=== PATIENT | male | born 1950 | race Caucasian/White ===

== ENCOUNTER 2020-12-22 05:47 | Emergency (ER) | payer MEDICARE ==
--- NOTE | 2020-12-22 06:49 | EDM.PDOC ---
<Justin Villanueva - Last Filed: 12/22/20 09:16> ED HPI GENERAL MEDICAL PROBLEM - General Chief Complaint: General Stated Complaint: COUGH/CHEST CONGESTION/BODY ACHES Time Seen by Provider: 12/22/20 06:20 - Related Data Allergies Allergy/AdvReac Type Severity Reaction Status Date / Time No Known Allergies Allergy Verified 12/22/20 06:23 Home Meds: Home Meds Aspirin [Children's Aspirin] 81 mg PO DAILY 12/22/20 [History] Verapamil HCl [Verelan] 360 mg PO DAILY 12/22/20 [History] Course - Re-Assessments/Exams Free Text/Narrative Re-Assessment/Exam: 12/22/20 09:16 Assumed care at change of shift. The patient was getting set up for monoclonal antibody therapy he is completed this in the observation. And he would like to go home Departure - Departure Time of Disposition: 09:17 Disposition: Home, Self-Care 01 Clinical Impression: COVID-19 - Discharge Information Instructions: COVID-19 Referrals: Suly Rosado STUDENT DEVELOPMENT ADVISOR [Primary Care Provider] - Forms: ED Department Discharge Additional Instructions: Return to the emergency room with any questions problems or worsening symptoms. Stay isolated for 4 days after you are completely symptom-free without the aid of any medication. <Gallo Alvarez - Last Filed: 12/22/20 20:56> ED HPI GENERAL MEDICAL PROBLEM - General Source of Information: Reports: Patient History Limitations: Reports: No Limitations - History of Present Illness INITIAL COMMENTS - FREE TEXT/NARRATIVE: Patient is a 70-year-old male presenting to the emergency room with a chief c omplaint of fatigue. Patient reports feeling symptoms since last Thursday. Patient states symptoms have not improved at all. He does report a decrease in appetite. He continues to eat and drink. Patient denies any vomiting, diarrhea, shortness of breath, chest pain. Patient did not receive vaccination for Covid. His is also a patient here for similar type symptoms. Patient reports feeling so tired that he could "sleep on his head. Patient states he has several relatives over here and received the antibody infusion and felt immediately better. He is inquiring about possibly getting this. Patient is concerned that he may have COVID-19. He states he is lived 5 blocks in his hospital and never been here before. He has not seen a doctor in many years. Past Medical History Cardiovascular History: Reports: Hypertension Social & Family History - Family History Family Medical History: No Pertinent Family History - Tobacco Use Tobacco Use Status *Q: Never Tobacco User Second Hand Smoke Exposure: No - Caffeine Use Caffeine Use: Reports: None - Recreational Drug Use Recreational Drug Use: No ED ROS GENERAL - Review of Systems Review Of Systems: See Below Free Text/Narrative/Comment: In addition to that documented in the HPI above, the additional ROS was obtained: Constitutional: Denies fevers or chills Eyes: Denies vision changes ENMT: Denies sore throat CV: Denies chest pain Resp: Denies SOB GI: Denies vomiting or diarrhea : Denies painful urination MSK: Denies recent trauma Skin: Denies new rashes Neuro: Denies new numbness or tingling or weakness Heme: Denies bleeding disorders ED EXAM, GENERAL - Physical Exam Exam: See Below Free Text/Narrative:: I have reviewed the triage vital signs Const: Well nourished, well developed, appears stated age Eyes: Pupils Equal and reactive to light bilaterally, no conjunctival injection HENT: No signs of trauma or swelling, Neck supple without meningismus CV: Regular Rate Rhythm, Warm, well-perfused extremities RESP: Unlabored respiratory effort GI: soft, non-tender, non-distended, no masses MSK: No gross deformities appreciated Skin: Warm, dry. No rashes Neuro: Alert, cat dog or other pet groomer II-XII grossly intact. Sensation and motor function of extremities grossly intact. Psych: Appropriate mood and affect. Course - Vital Signs Last Recorded V/S: Last Vital Signs Temp 37.1 C 12/22/20 07:52 Pulse 73 12/22/20 08:00 Resp 18 12/22/20 08:00 BP 128/70 12/22/20 08:00 Pulse Ox 89 L 12/22/20 08:00 - Orders/Labs/Meds Labs: Laboratory Tests 12/22/20 12/22/20 12/22/20 Range/Units 06:14 06:30 06:30 WBC 4.30 (4.23-9.07) K/mm3 RBC 5.04 (4.63-6.08) M/mm3 Hgb 15.7 (13.7-17.5) gm/dl Hct 47.6 (40.1-51.0) % MCV 94.4 H (79.0-92.2) fl MCH 31.2 (25.7-32.2) pg MCHC 33.0 (32.2-35.5) g/dl RDW Std Deviation 43.9 (35.1-43.9) fL Plt Count 101 L (163-337) K/mm3 MPV 11.7 (9.4-12.3) fl Neut % (Auto) 81.4 H (34.0-67.9) % Lymph % (Auto) 13.0 L (21.8-53.1) % [place] % (Auto) 4.9 L (5.3-12.2) % Eos % (Auto) 0 L (0.8-7.0) Baso % (Auto) 0.2 (0.1-1.2) % Neut # (Auto) 3.50 (1.78-5.38) K/mm3 Lymph # (Auto) 0.56 L (1.32-3.57) K/mm3 [place] # (Auto) 0.21 L (0.30-0.82) K/mm3 Eos # (Auto) 0.00 L (0.04-0.54) K/mm3 Baso # (Auto) 0.01 (0.01-0.08) K/mm3 Sodium 138 (136-145) mEq/L Potassium 3.9 (3.5-5.1) mEq/L Chloride 103 (98-107) mEq/L Carbon Dioxide 28 (21-32) mEq/L Anion Gap 10.9 (5-15) BUN 23 H (7-18) mg/dL Creatinine 1.7 H (0.7-1.3) mg/dL Est Cr Clr Drug Dosing 46.34 mL/min Estimated GFR (MDRD) 40 (>60) mL/min BUN/Creatinine Ratio 13.5 L (14-18) Glucose 113 H (70-99) mg/dL Calcium 8.1 L (8.5-10.1) mg/dL Total Bilirubin 0.8 (0.2-1.0) mg/dL AST 37 (15-37) U/L ALT 34 (16-63) U/L Alkaline Phosphatase 53 (46-116) U/L C-Reactive Protein 5.6 H* (<1.0) mg/dL Total Protein 6.8 (6.4-8.2) g/dl Albumin 3.3 L (3.4-5.0) g/dl Globulin 3.5 gm/dL Albumin/Globulin Ratio 0.9 L (1-2) Influenza Type A RNA Negative (NEGATIVE) Influenza Type B RNA Negative (NEGATIVE) SARS-CoV-2 RNA (ROBE) Positive H (NEGATIVE) Meds: Medications Discontinued Medications Generic Name Dose Route Start Last Admin Trade Name Freq PRN Reason Stop Dose Admin Diphenhydramine HCl 50 mg 12/22/20 06:55 Diphenhydramine 50 Mg/Ml Sdv IVPUSH ASDIRECTED PRN hypersensitivity reaction Epinephrine HCl 0.3 mg 12/22/20 06:55 Epinephrine 1 Mg/Ml Sdv IM ASDIRECTED PRN hypersensitivity reaction Famotidine 20 mg 12/22/20 06:55 Famotidine 20 Mg/2 Ml Sdv IVPUSH ASDIRECTED PRN hypersensitivity reaction SOTROVIMAB 500 mg/ Sodium 108 mls @ 216 mls/hr 12/22/20 06:55 Chloride IV 12/22/20 07:24 ONETIME ONE CASIRIVIMAB/IMDEVIMAB 10 ml/ 110 mls @ 220 mls/hr 12/22/20 06:58 12/22/20 07:36 Sodium Chloride IV 12/22/20 07:27 220 mls/hr ONETIME ONE Administration Methylprednisolone Sodium Succinate 125 mg 12/22/20 06:55 Methylprednisolone Sodium Succinate 125 Mg/2 Ml Sdv IVPUSH ASDIRECTED PRN hypersensitivity reaction Sodium Chloride 30 ml 12/22/20 07:00 12/22/20 08:19 Sodium Chloride 0.9% 10 Ml Syringe FLUSH 30 ml ASDIRECTED HELENE Administration - Re-Assessments/Exams Free Text/Narrative Re-Assessment/Exam: 12/22/20 06:48 I spoke with this patient to provide information about antibiotic infusion. I offered them the patient and caregiver EUA back she to read and review state of the drug has been approved for emergency use authorization and has not been fully FDA reviewed or approved. The patient meets the EUA requirements I discussed the other potential treatment options that are currently not FDA approved to treat COVID-19. Offered opportunity to ask questions and all questions were answered Patient voiced understanding and agreed to proceed with treatment for COVID-19. Sepsis Event Note (ED) - Evaluation Sepsis Screening Result: No Definite Risk - Assessment/Plan Assessment:: Patient is a 70-year-old male presenting with symptoms consistent with COVID-19. Patient is not hypoxic or in respiratory distress. Laboratory studies were ordered as well as COVID-19 test. Patient was consented for Regeneron since his Covid test came back positive. I feel it will likely be appropriate for discharge after monitoring. Patient will be signed out to Dr. Villanueva pending infusion and reassessment.
[2020-12-22 06:54] LABS: CORONAVIRUS COVID-19 NAA POSITIVE (NEGATIVE)
[2020-12-22] MEDS ORDERED: methylPREDNISolone Sodium Succinate 125 MG/2 ML SDV IVPUSH PRN (06:55)
[2020-12-22] MEDS ORDERED: EPINEPHrine 1 MG/ML SDV IM PRN (06:55)
[2020-12-22] MEDS ORDERED: diphenhydrAMINE 50 MG/ML SDV IVPUSH PRN (06:55)
[2020-12-22] MEDS ORDERED: Famotidine 20 MG/2 ML SDV IVPUSH PRN (06:55)
[2020-12-22] MEDS ORDERED: Sodium Chloride 0.9% 10 ML Syringe FLUSH SCH (07:00)
== END 2020-12-22 09:35 | disposition home or self-care (01) ==
LOC: JD.ED 05:47
DX: U07.1 COVID-19 (principal); I10 Essential (primary) hypertension; Z79.899 Other long term (current) drug therapy
CPT/HCPCS: 0240U; 36415; 80053; 85025; 86140; 99283; M0243; Q0243

== ENCOUNTER 2021-01-02 14:23 | Emergency (ER) | payer MEDICARE ==
--- NOTE | 2021-01-02 15:25 | EDM.PDOC ---
ED HPI GENERAL MEDICAL PROBLEM - General Chief Complaint: Respiratory Problem Stated Complaint: COVID+ SOB Time Seen by Provider: 01/02/21 14:28 Source of Information: Reports: Patient, Old Records, Provider, RN Notes Reviewed History Limitations: Reports: No Limitations - History of Present Illness INITIAL COMMENTS - FREE TEXT/NARRATIVE: Patient is a 64-year-old male presenting to the ER from the [facility] for pulmonary embolism. Patient has been ill with Covid symptoms since 14 December. He was seen in our facility on 22 December and received monoclonal antibody infu qi. He followed up with his primary care on December 26. At that time his oxygen was found to be low and he was found to have bilateral Covid pneumonia. He did not want to be admitted to the hospital, therefore she started him on home oxygen. He states he has been wearing oxygen at 1 L by nasal cannula and that he is maintaining saturations above 90%. He was also started on dexamethasone, cephalexin, and azithromycin which he did take as prescribed. He went to the clinic today for follow-up and was found to have an elevated D- dimer. He did state he had some mild leg pain as well. Venous Doppler ultrasound of the lower extremities were completed and found to be negative for DVT. CT angiogram of the chest was completed with impression as follows: Filling defects within subsegmental branches within the right lower lobe consistent with pulmonary embolism. Small overall embolic burden. No evidence of right heart strain at this time. Chest x-ray completed in the clinic impression as follows: No significant change since 12/26/2020. Scattered interstitial and airspace opacities throughout the lungs compatible with an infectious or inflammatory process. No pleural effusions or pneumothorax. Normal heart size. Patient denies any chest pain or feelings of shortness of breath. He states I "feel great ". He feels that his symptoms have been progressively improving since last week. States that he does not want to be admitted the hospital and less absolutely necessary. - Related Data Allergies Allergy/AdvReac Type Severity Reaction Status Date / Time No Known Allergies Allergy Verified 12/22/20 06:23 Home Meds: Home Meds Aspirin [Children's Aspirin] 81 mg PO DAILY 12/22/20 [History] Verapamil HCl [Verelan] 360 mg PO DAILY 12/22/20 [History] Apixaban [Eliquis] 5 mg PO ASDIRECTED #68 tablet 01/02/21 [Rx] Past Medical History Cardiovascular History: Reports: Hypertension Respiratory History: Reports: Other (See Below) Other Respiratory History: Covid Social & Family History - Family History Family Medical History: No Pertinent Family History - Tobacco Use Tobacco Use Status *Q: Never Tobacco User Second Hand Smoke Exposure: No - Caffeine Use Caffeine Use: Reports: None - Recreational Drug Use Recreational Drug Use: No ED ROS GENERAL - Review of Systems Review Of Systems: See Below Constitutional: Reports: No Symptoms. Denies: Fever, Chills, Fatigue HEENT: Reports: No Symptoms Respiratory: Reports: No Symptoms. Denies: Shortness of Breath, Pleuritic Chest Pain, Cough Cardiovascular: Reports: No Symptoms. Denies: Chest Pain, Dyspnea on Exertion, Lightheadedness, Palpitations Endocrine: Reports: No Symptoms GI/Abdominal: Reports: No Symptoms : Reports: No Symptoms Musculoskeletal: Reports: No Symptoms Skin: Reports: No Symptoms Neurological: Reports: No Symptoms Psychiatric: Reports: No Symptoms Hematologic/Lymphatic: Reports: No Symptoms Immunologic: Reports: No Symptoms ED EXAM, GENERAL - Physical Exam Exam: See Below Exam Limited By: No Limitations General Appearance: Alert, WD/WN, No Apparent Distress Respiratory/Chest: No Respiratory Distress, No Accessory Muscle Use, Chest Non- Tender, Decreased Breath Sounds (Throughout) Cardiovascular: Normal Peripheral Pulses, Regular Rate, Rhythm, No Edema, No Gallop, No JVD, No Murmur, No Rub GI/Abdominal: Normal Bowel Sounds, Soft, Non-Tender, No Organomegaly, No Distention, No Abnormal Bruit, No Mass Neurological: Alert, Oriented, Normal Cognition, Normal Gait, No Motor/Sensory Deficits Psychiatric: Normal Affect, Normal Mood Skin Exam: Warm, Dry, Intact, Normal Color, No Rash #1 Interpretation EKG Date: 01/02/21 Time: 15:39 Rhythm: NSR Rate (Beats/Min): 90 [place]: Normal P-Wave: Present QRS: Normal ST-T: Normal QT: Normal Course - Vital Signs Last Recorded V/S: Last Vital Signs Temp 97.8 F 01/02/21 14:49 Pulse 80 01/02/21 16:50 Resp 16 01/02/21 16:50 BP 123/77 01/02/21 16:50 Pulse Ox 95 01/02/21 16:50 - Orders/Labs/Meds Meds: Medications Discontinued Medications Generic Name Dose Route Start Last Admin Trade Name Taryn PRN Reason Stop Dose Admin Apixaban 10 mg 01/02/21 15:30 01/02/21 16:43 Apixaban 5 Mg Tab PO 01/02/21 15:31 10 mg ONETIME ONE Administration - Re-Assessments/Exams Free Text/Narrative Re-Assessment/Exam: Patient is a 70-year-old male presenting to the emergency department from [facility] after diagnosis of pulmonary embolism with known Covid. He is approximately 18 days into his illness. He has been on home oxygen for 1 week. He feels he is improving clinically. He does not feel short of breath and denies any chest pain. Routine follow-up today, D-dimer was checked and found to be elevated. Small subsegmental PEs were noted in the right lower lobe. There was no evidence of heart strain. Bilateral Covid pneumonia is stable from x-ray completed on the . It is not worsened. He has not required any increased oxygen. In the ER, patient is on 1 L of oxygen by nasal cannula saturating 96%. Pulse rate is normal at 94 and blood pressure normal at 132/80. He states that he feels great. I discussed the case with hospitalist, Dr. Hansen. He is outside of the timeframe where he would benefit from treatment with remdesivir, however he would be willing to admit the patient into observation,start him on Eliquis for anticoagulation and monitor him to ensure his clinical state does not worsen. Discussed this with the patient and he does not want to be admitted in the hospital. He would prefer to be started on Eliquis and be discharged home to return if symptoms should worsen anyway. He states that he lives "2 minutes away "from the hospital and can come back if anything should worsen. I did not receive record of EKG being completed at the [facility], therefore we will complete one now. 01/02/21 16:31 EKG shows no evidence of heart strain or ischemia. Patient continues to want to go home as opposed to being admitted. We will give him the first dose of Eliquis here in the emergency department and send prescription. I did call [facility] and unfortunately his primary care provider, Suly Rosado, is out of the office. They will have a provider contact him on Thursday morning to set up follow-up. Let patient know that if he does not get contacted, he should contact the clinic. Discussed return precautions with him including worsening of symptoms such as chest pain, shortness of breath, or any other concerning symptoms. Also discussed risk of bleeding associated with blood thinners and he verbalized understanding. Patient was advised to stop taking his baby aspirin while on the Eliquis. Discharge instructions as documented. Departure - Departure Time of Disposition: 16:31 Disposition: Home, Self-Care 01 Condition: Good Clinical Impression: COVID-19, Pulmonary embolism associated with COVID-19 - Discharge Information *PRESCRIPTION DRUG MONITORING PROGRAM REVIEWED*: No *COPY OF PRESCRIPTION DRUG MONITORING REPORT IN PATIENT ANDREA: No Prescriptions: Apixaban [Eliquis] 5 mg PO ASDIRECTED #68 tablet Instructions: COVID-19, Pulmonary Embolism Referrals: Suly Rosado, STRETCH PRESS OPERATOR [Primary Care Provider] - Forms: ED Department Discharge Additional Instructions: Take the Eliquis as prescribed. You did receive your first dose of 10 mg (2 tablets) in the ER. Follow-up at [facility] on Thursday. Schedule appoint with your primary care provider as soon as she returns to the clinic for ongoing management of your Eliquis prescription. Should experience any worsening symptoms such as chest pain, shortness of breath, increased oxygen demands, or any other concerning symptoms you should return to ER. Being on blood thinners, you are at increased risk of bleeding. If you should have any head injuries, falls, or nosebleeds that do not stop within 15 to 20 minutes, you should be evaluated in the ER. Sepsis Event Note (ED) - Evaluation Sepsis Screening Result: No Definite Risk
[2021-01-02] MEDS ORDERED: Apixaban 5 MG Tab PO ONE (15:30)
== END 2021-01-02 16:50 | disposition home or self-care (01) ==
LOC: JD.ED 14:23
DX: U07.1 COVID-19 (principal); I26.99 Other pulmonary embolism without acute cor pulmonale; I10 Essential (primary) hypertension; Z79.899 Other long term (current) drug therapy
CPT/HCPCS: 93005; 99284; A9270

== ENCOUNTER 2023-09-14 22:01 | Emergency (ER) | payer MEDICARE, BC ==
[2023-09-14 22:27] LABS: BASOPHILS ABSOLUTE AUTO 0.1 K/mm3 (0.0-0.2); BASOPHILS PERCENT AUTO 0.5 % (0.0-1.0); EOSINOPHILS ABSOLUTE AUTO 0.1 K/mm3 (0.0-0.4); EOSINOPHILS PERCENT AUTO 0.7 % (0.0-6.0); HEMATOCRIT 48.5 % (42.0-52.0); HEMOGLOBIN 16.4 gm/dl (14.0-18.0); IMMATURE GRAN ABSOLUTE AUTO 0.06 K/mm3 (0.00-0.05); IMMATURE GRAN PERCENT AUTO 0.5 % (0.0-0.4); LYMPHOCYTES ABSOLUTE AUTO 1.5 K/mm3 (1.0-4.8); MEAN CORPUSCULAR HEMOGLOBIN 32.3 pg (28.0-32.0); MEAN CORPUSCULAR HGB CONC 33.8 g/dl (32.0-36.0); MEAN CORPUSCULAR VOLUME 95.5 fl (83.0-99.0); MEAN PLATELET VOLUME 10.8 fl (9.4-12.4); MONOCYTES ABSOLUTE AUTO 0.9 K/mm3 (0.0-0.8); NEUTROPHILS ABSOLUTE AUTO 9.9 K/mm3 (1.8-7.7); NEUTROPHILS PERCENT AUTO 79.3 % (41.0-71.0); PLATELET COUNT,PLT 184 K/mm3 (150-400); RED BLOOD CELL COUNT 5.08 M/mm3 (4.52-5.90); WHITE BLOOD CELL COUNT,WBC 12.48 K/mm3 (3.9-11.3)
[2023-09-14] MEDS: Ondansetron 4 MG/2 ML SDV IVPUSH ONE (22:33)
[2023-09-14] MEDS: Sodium Chloride 0.9% 10 ML Syringe FLUSH PRN (22:33)
[2023-09-14] MEDS: Sodium Chloride 0.9% 1,000 ML IV SCH (22:33)
[2023-09-14] MEDS: HYDROmorphone 0.5 MG/0.5 ML Syringe IVPUSH ONE (22:33)
[2023-09-14] MEDS: Ketorolac 15 MG/ML SDV IVPUSH ONE (22:33)
[2023-09-14] MEDS: Ketorolac 30 MG/ML SDV IVPUSH ONE (22:41)
[2023-09-14 22:48] LABS: A/G RATIO 1.2 (1-2); ALBUMIN 4.1 g/dl (3.4-5.0); ANION GAP 16.5 (5-15); BILIRUBIN TOTAL 0.6 mg/dL (0.2-1.0); BUN/CREATININE RATIO 7.9 (14-18); CALCIUM 9.1 mg/dL (8.5-10.1); CREATININE 3.3 mg/dL (0.7-1.3); EST CRCL DRUG DOSING (CG) 22.83 mL/min; POTASSIUM,K 4.5 mEq/L (3.5-5.1); PROTEIN TOTAL,TP 7.4 g/dl (6.4-8.2)
== END 2023-09-15 00:11 | disposition home or self-care (01) ==
LOC: JD.ED 22:01
DX: N13.2 Hydronephrosis with renal and ureteral calculous obstruction (principal); R91.1 Solitary pulmonary nodule; N28.9 Disorder of kidney and ureter, unspecified; N36.8 Other specified disorders of urethra; I10 Essential (primary) hypertension; Z79.82 Long term (current) use of aspirin; Z79.899 Other long term (current) drug therapy
CPT/HCPCS: 36415; 74176; 80053; 83690; 85025; 96361; 96374; 96375; 99284; J1170; J1885; J2405; J3490; J7030; 99285